=== PATIENT | female | born 1940 | race Two or more races ===

== ENCOUNTER 2024-03-18 05:21 | Emergency (ER) | payer MEDICARE, OTHER ==
[~2024-03-18] VITALS: Ht 165.1 cm; Wt 73.0 kg
[2024-03-18 05:36] VITALS: TEMP 98.3
[2024-03-18] MEDS ORDERED: ACETAMINOPHEN ES 500 MG TABLET ONE (05:56)
[2024-03-18] MEDS: ACETAMINOPHEN ES 500 MG TABLET PO ONE (06:00)
[2024-03-18 11:12] VITALS: BP 128/68; O2SAT 98
== END 2024-03-18 11:12 | disposition home or self-care (01) ==
LOC: ER 05:23
DX: M51.369 Other intervertebral disc degeneration, lumbar region without mention of lumbar back pain or lower extremity pain (principal); G89.29 Other chronic pain; I10 Essential (primary) hypertension; M25.551 Pain in right hip; M47.816 Spondylosis without myelopathy or radiculopathy, lumbar region; Z79.01 Long term (current) use of anticoagulants; Z60.2 Problems related to living alone
CPT/HCPCS: 72110-TC